=== PATIENT | male | born 1970 ===

== ENCOUNTER 2017-10-16 07:50 | Outpatient (CLI) | payer OTHER | END 2017-10-16 07:59 | disposition home or self-care (01) | LOC: RAD 07:50 | DX: M54.04 Panniculitis affecting regions of neck and back, thoracic region (principal); M54.5 Low back pain; M54.2 Cervicalgia | CPT/HCPCS: 72146 ==

== ENCOUNTER 2018-05-21 13:45 | Outpatient (CLI) | payer OTHER | END 2018-05-21 14:19 | disposition home or self-care (01) | LOC: MRI 13:45 | DX: M54.5 Low back pain (principal); M53.3 Sacrococcygeal disorders, not elsewhere classified; M51.36 Other intervertebral disc degeneration, lumbar region; M51.26 Other intervertebral disc displacement, lumbar region; M54.2 Cervicalgia; M50.20 Other cervical disc displacement, unspecified cervical region | CPT/HCPCS: 72141; 72148 ==

== ENCOUNTER 2018-06-07 10:25 | Outpatient (CLI) | payer OTHER ==
[2018-06-14] MEDS ORDERED: XANAFLEX PO (15:27)
[2018-06-14] MEDS ORDERED: AVAPRO150 MG PO (15:27)
[2018-06-14] MEDS ORDERED: BACLOFEN20 MG PO (15:28)
== END 2018-06-07 10:28 | disposition home or self-care (01) ==
LOC: SONOGRAMA 10:25 → MAMO-SONO 10:45
DX: M13.842 Other specified arthritis, left hand (principal); G56.02 Carpal tunnel syndrome, left upper limb; M54.89 Other dorsalgia; M79.642 Pain in left hand

== ENCOUNTER 2018-06-18 06:42 | Day surgery (SDC) | payer OTHER ==
[~2018-06-18 06:42] MED LIST: AVAPRO150 MG PO; BACLOFEN20 MG PO; XANAFLEX PO
== END 2018-06-18 09:55 | disposition home or self-care (01) ==
LOC: CIR.AMB 06:42
DX: M65.312 Trigger thumb, left thumb (principal)

== ENCOUNTER 2020-04-08 12:22 | Outpatient (CLI) | payer OTHER | END 2020-04-08 18:00 | disposition home or self-care (01) | LOC: LAB 12:22 | DX: Z20.828 Contact with and (suspected) exposure to other viral communicable diseases (principal) ==